=== PATIENT | male | born 1955 | race Caucasian/White ===

== ENCOUNTER 2016-08-22 10:12 | Emergency (ER) | payer OTHER | END 2016-08-22 11:29 | disposition home or self-care (01) | LOC: NAV ERS 10:12 | DX: T16.2XXA Foreign body in left ear, initial encounter (principal); I10 Essential (primary) hypertension; Z79.82 Long term (current) use of aspirin; Z79.899 Other long term (current) drug therapy | CPT/HCPCS: 69200 ==

== ENCOUNTER 2017-05-07 18:20 | Emergency (ER) | payer OTHER ==
[2017-05-07] MEDS ORDERED: Lidocaine 1% 20 ML MDV ONE (18:32)
[2017-05-07] MEDS ORDERED: Bacitracin Zinc 1 Packet ONE (19:37)
== END 2017-05-07 20:00 | disposition home or self-care (01) ==
LOC: NAV ERS 18:20
DX: S61.211A Laceration without foreign body of left index finger without damage to nail, initial encounter (principal); I10 Essential (primary) hypertension; M19.90 Unspecified osteoarthritis, unspecified site; W29.3XXA Contact with powered garden and outdoor hand tools and machinery, initial encounter
CPT/HCPCS: 12002; J2001

== ENCOUNTER 2017-05-18 16:30 | Emergency (ER) | payer OTHER ==
[2017-05-18] MEDS ORDERED: Clindamycin 150 MG CAP ONE (17:05)
== END 2017-05-18 17:10 | disposition home or self-care (01) ==
LOC: NAV ERS 16:30
DX: L03.012 Cellulitis of left finger (principal); I10 Essential (primary) hypertension; M19.90 Unspecified osteoarthritis, unspecified site; Z79.82 Long term (current) use of aspirin; Z79.899 Other long term (current) drug therapy
CPT/HCPCS: 99283

== ENCOUNTER 2017-07-16 17:42 | Emergency (ER) | payer OTHER ==
[2017-07-16] MEDS ORDERED: Sodium Chloride 0.9% 1,000 ML ONE ×2 (18:22→19:33)
[2017-07-16] MEDS ORDERED: Ibuprofen 800 MG TAB ONE (18:22)
[2017-07-16 18:32] LABS: #Basophils 0.1 thou/uL (0.0-0.2); #Eosinphils 0.2 thou/uL (0.0-0.7); #Lymphocytes 1.4 thou/uL (1.20-3.40); #Monocytes 0.9 thou/uL (0.11-0.59); #Neutrophils 6.6 thou/uL (1.40-6.50); %Basophils 1.5 % (0.0-1.0); %Eosinophils 2.2 % (0.0-10.0); %Lymphocytes 15.2 % (21.0-51.0); %Neutrophils 71.2 % (42.0-75.0); Hemoglobin 15.2 g/dL (14.0-18.0); Mean Corpuscular Hemoglobin 28.1 pg (27.0-31.0); Mean Corpuscular Volume 82.8 fl (80.0-94.0); Mean Platelet Volume 9.4 fL (7.4-10.4); Platelet Count 207 thou/uL (130-400); RBC Distribution Width 11.1 % (11.5-14.5); White Blood Cell (WBC) Count 9.3 thou/uL (4.8-10.8)
[2017-07-16 18:46] LABS: ALT (SGPT) 22 U/L (8-55); Albumin 4.4 g/dL (3.5-5.0); Alkaline Phosphatase 93 U/L (40-150); Anion Gap 17 mmol/L (10-20); BUN (Urea Nitrogen) 16 mg/dL (8.4-25.7); Bilirubin, Total 0.6 mg/dL (0.2-1.2); Calc. Creatinine Clearance 0 mL/min (70-130); Calcium 9.4 mg/dL (7.8-10.44); Carbon Dioxide 25 mmol/L (22-29); Chloride 98 mmol/L (98-107); Estimated GFR-MDRD 63; Glucose 104 mg/dL (70-105); Potassium 4.3 mmol/L (3.5-5.1); Protein, Total 8.4 g/dL (6.0-8.3); Sodium 136 mmol/L (136-145)
[2017-07-16 18:50] LABS: AST (SGOT) 22 U/L (5-34)
--- NOTE | 2017-07-16 21:12 | RAD ---
PA AND LATERAL CHEST X-RAY 07/16/17 HISTORY: Cough, congestion, and sinus drainage. COMPARISON: 12/04/15. Cardiac silhouette and pulmonary vasculature are within normal limits. There is increased density at the medial aspect of each lung base which was also seen on the prior exam and unchanged and may repre sent epicardial fat pads. The lungs are otherwise clear. There are postsurgical changes of the left c lavicle with plate and screws transfixing the left clavicle. Remote left sided rib fractures are seen . There has been no interval change when compared to the prior exam. IMPRESSION: 1. No acute cardiopulmonary process. 2. Remote left sided rib fractures. POS: [facility]
== END 2017-07-16 21:19 | disposition home or self-care (01) ==
LOC: NAV ERS 17:42
DX: B34.9 Viral infection, unspecified (principal); E86.0 Dehydration; I10 Essential (primary) hypertension; Z79.82 Long term (current) use of aspirin; Z79.899 Other long term (current) drug therapy
CPT/HCPCS: 71046; 80053; 83605; 85025; 87081; 87430; 87804; 96360; 96361; J7050

== ENCOUNTER 2021-01-31 13:50 | Emergency (ER) | payer OTHER ==
[2021-01-31] MEDS ORDERED: Acetaminophen 500 MG TAB ONE (14:11)
[2021-01-31 14:27] LABS: Clarity Clear (Clear); Leukocyte Negative (Negative); Nitrite Negative (Negative); Protein, Urine (Dipstick) 30 mg/dL (Neg-Trace); pH, Urine 5.5 (5.0-9.0)
[2021-01-31 14:28] LABS: Bilirubin Small (Negative); Blood, Urine Negative (Negative); Glucose, Urine (Dipstick) Negative (Negative); Ketone, Urine Negative (Negative); Urobilinogen 0.2 mg/dL (Less than 2)
[2021-01-31 14:30] LABS: Specific Gravity, Urine 1.023 (1.002-1.036)
[2021-01-31 14:37] LABS: #Basophils 0.1 thou/uL (0.0-0.2); #Lymphocytes 0.8 thou/uL (1.20-3.40); #Monocytes 0.8 thou/uL (0.11-0.59); #Neutrophils 13.7 thou/uL (1.40-6.50); %Basophils 0.6 % (0.0-1.0); %Eosinophils 0.2 % (0.0-10.0); %Lymphocytes 5.2 % (21.0-51.0); %Monocytes 5.3 % (0.0-10.0); %Neutrophils 88.6 % (42.0-75.0); Hemoglobin 15.2 g/dL (14.0-18.0); Mean Corpuscular HGB CONC 32.8 g/dL (32.0-36.0); Mean Corpuscular Hemoglobin 28.5 pg (27.0-31.0); Mean Corpuscular Volume 86.9 fL (78.0-98.0); Mean Platelet Volume 10.7 fL (7.4-10.4); Platelet Count 253 thou/uL (130-400); RBC Distribution Width 11.8 % (11.5-14.5); Red Blood Cell (RBC) Count 5.35 mill/uL (4.70-6.10); White Blood Cell (WBC) Count 15.5 thou/uL (4.8-10.8)
[2021-01-31 14:46] LABS: Bacteria/HPF None Seen HPF (None Seen); RBC/HPF 0-3 HPF (0-3); Squamous Epithelial 0-3 HPF (0-3); WBC/HPF 0-3 HPF (0-3)
[2021-01-31 14:53] LABS: Amphetamine Not Detected (NotDetected); Barbiturates Screen Not Detected (NotDetected); Benzodiazepine Screen Not Detected (NotDetected); Cocaine Metabolite Screen Not Detected (NotDetected); Medtox Control Line Valid? VALID (VALID); Methadone Not Detected (NotDetected); Methamphetamine Not Detected (NotDetected); Opiate Screen Detected (NotDetected); Oxycodone Screen Detected (NotDetected); Phencyclidine (PCP) Not Detected (NotDetected); THC/Cannabinoid Screen Not Detected (NotDetected); Tricyclic Screen Not Detected (NotDetected)
[2021-01-31 14:54] LABS: ALT (SGPT) 20 U/L (8-55); AST (SGOT) 16 U/L (5-34); Albumin 3.9 g/dL (3.4-4.8); Alkaline Phosphatase 85 U/L (40-110); Anion Gap 14 mmol/L (10-20); BUN (Urea Nitrogen) 10 mg/dL (8.4-25.7); CK (CPK) 65 U/L (30-200); Calc. Creatinine Clearance 0 mL/min (70-130); Calcium 8.7 mg/dL (7.8-10.44); Carbon Dioxide 21 mmol/L (23-31); Chloride 104 mmol/L (98-107); Globulin 3.8 g/dL (2.4-3.5); Glucose 141 mg/dL (80-115); Potassium 4.3 mmol/L (3.5-5.1); Protein, Total 7.7 g/dL (5.8-8.1); Sodium 135 mmol/L (136-145)
[2021-01-31] MEDS ORDERED: Sodium Chloride 0.9% 2,000 ML ONE (15:09)
[2021-01-31] MEDS ORDERED: Ketorolac Tromethamine 30 MG/ML VIAL ONE (15:09)
[2021-01-31] MEDS ORDERED: Ondansetron PF 4 MG/2 ML Vial ONE (15:40)
== END 2021-01-31 15:54 | disposition home or self-care (01) ==
LOC: NAV ERS 13:50
DX: T67.5XXA Heat exhaustion, unspecified, initial encounter (principal); E86.0 Dehydration; I10 Essential (primary) hypertension; Z79.899 Other long term (current) drug therapy
CPT/HCPCS: 71045; 80053; 80306; 81003; 81015; 82550; 85025; 96374; 96375; J1885; J2405; J7050

== ENCOUNTER 2022-08-25 22:48 | Emergency (ER) | payer MEDICARE, OTHER ==
[2022-08-25] MEDS ORDERED: NEOMYCIN-POLYMYXIN-HC EAR SUSP 200 DROP/10 ML BOT ONE (23:16)
[2022-08-25] MEDS ORDERED: cefTRIAXone (ROCEPHIN) 1 GM VIAL ONE (23:16)
== END 2022-08-25 23:55 | disposition home or self-care (01) ==
LOC: NAV ERS 22:48
DX: H60.91 Unspecified otitis externa, right ear (principal); H66.91 Otitis media, unspecified, right ear; I10 Essential (primary) hypertension; M19.90 Unspecified osteoarthritis, unspecified site; M79.7 Fibromyalgia; Z79.82 Long term (current) use of aspirin; Z79.899 Other long term (current) drug therapy
CPT/HCPCS: 96372; 99282; J0696

== ENCOUNTER 2023-06-24 12:21 | Emergency (ER) | payer MEDICARE, MEDICAID ==
[~2023-06-24 12:21] MED LIST: Iopamidol 370 76% 100 ML VIAL ONE
[2023-06-24] MEDS ORDERED: Ibuprofen 200 MG TAB ONE (12:59)
[2023-06-24 13:24] LABS: #Basophils 0.1 thou/uL (0.0-0.2); #Lymphocytes 1.7 thou/uL (1.20-3.40); #Monocytes 0.8 thou/uL (0.11-0.59); #Neutrophils 12.1 thou/uL (1.40-6.50); %Basophils 0.9 % (0.0-1.0); %Eosinophils 0.2 % (0.0-10.0); %Lymphocytes 11.5 % (21.0-51.0); %Monocytes 5.1 % (0.0-10.0); %Neutrophils 82.3 % (42.0-75.0); Hematocrit 40.4 % (42.0-52.0); Hemoglobin 13.7 g/dL (14.0-18.0); Mean Corpuscular Hemoglobin 28.8 pg (27.0-31.0); Mean Corpuscular Volume 84.6 fl (78.0-98.0); Mean Platelet Volume 7.5 fL (7.4-10.4); Platelet Count 306 10x3/uL (130-400); RBC Distribution Width 10.9 % (11.5-14.5); Red Blood Cell (RBC) Count 4.78 mill/uL (4.70-6.10); White Blood Cell (WBC) Count 14.7 10x3/uL (4.8-10.8)
[2023-06-24 13:43] LABS: Bilirubin Negative (Negative); Blood, Urine Trace (Negative); Clarity Clear (Clear); Glucose, Urine (Dipstick) Negative (Negative); Ketone, Urine Negative (Negative); Leukocyte Trace (Negative); Nitrite Negative (Negative); Protein, Urine (Dipstick) > or equal to 300 mg/dL (Neg-Trace); pH, Urine 5.5 (5.0-9.0)
[2023-06-24 13:43] LABS: SARS-CoV-2 NAA Rapid Test Not Detected (NotDetected)
[2023-06-24 13:45] LABS: ALT (SGPT) 12 U/L (8-55); AST (SGOT) 9 U/L (5-34); Albumin 3.8 g/dL (3.4-4.8); Alkaline Phosphatase 67 U/L (40-110); Anion Gap 16 mmol/L (10-20); BUN (Urea Nitrogen) 11 mg/dL (8.4-25.7); Bilirubin, Total 0.9 mg/dL (0.2-1.2); Calc. Creatinine Clearance 0 mL/min (70-130); Calcium 8.7 mg/dL (7.8-10.44); Carbon Dioxide 24 mmol/L (23-31); Chloride 98 mmol/L (98-107); Estimated GFR 55; Globulin 3.7 g/dL (2.4-3.5); Glucose 184 mg/dL (80-115); Potassium 3.7 mmol/L (3.5-5.1); Protein, Total 7.5 g/dL (5.8-8.1); Sodium 134 mmol/L (136-145)
[2023-06-24 13:50] LABS: RBC/HPF 0-3 HPF (0-3)
[2023-06-24 13:51] LABS: Bacteria/HPF 1+ HPF (None Seen); CAUTI Indications for Culture Fever or rigors; Mucous/LPF 1+ LPF (<2+)
[2023-06-24 13:52] LABS: Urine Culture Reflex No No
[2023-06-24] MEDS ORDERED: cefTRIAXone (ROCEPHIN) 2 GM VIAL ONE (14:06)
[2023-06-24] MEDS ORDERED: Azithromycin 500 MG VIAL ONE (14:06)
[2023-06-24] MEDS ORDERED: Sodium Chloride 0.9% 100 ML ONE (14:06)
[2023-06-24] MEDS ORDERED: Sodium Chloride 0.9% 1,000 ML ONE (14:06)
[2023-06-24] MEDS ORDERED: Sodium Chloride 0.9% 250 ML 250 ML ONE (14:06)
== END 2023-06-24 16:34 | disposition short-term general hospital (02) ==
LOC: NAV ERS 12:21
DX: J18.1 Lobar pneumonia, unspecified organism (principal); A41.9 Sepsis, unspecified organism; J96.01 Acute respiratory failure with hypoxia; E78.5 Hyperlipidemia, unspecified; I10 Essential (primary) hypertension; Z79.82 Long term (current) use of aspirin
CPT/HCPCS: 71046; 71275; 80053; 81001; 83605; 83880; 85025; 85379; 87040; 87804 ×2; 93005; J0456; U0002; 96365; 96367; J0696; J3490; J7050